=== PATIENT | female | born 1970 | race Caucasian/White ===

== ENCOUNTER 2016-11-25 09:25 | Outpatient (CLI) | payer OTHER ==
--- NOTE | 2016-11-25 15:04 | DIAGNOSTIC IMAGING REPORT ---
PROCEDURE: MG UNILATERAL DIAG-LT W/CAD INDICATION: LT BREAST MASS TECHNIQUE: Standard CC and MLO views of the left breast. Spot compression mammographic views of the left breast in the CC and MLO projection. A direct lateral left breast mammogram using CAD. The patient then went to ultrasound where alcaraz-scale and color Doppler sonographic imaging of the left breast was performed. COMPARISON: 05/19/2016, 05/16/2015, 03/15/2014 FINDINGS: Mammograms: Minimally dense fibrofatty tissue is present. In the area of the indicated palpable abnormality, (7o'clock position) no evidence of mass, architectural distortion, or clustered microcalcification. Ultrasound: In the area of palpable abnormality, there is a subtle change in the density of the adipose tissue but no encapsulated, discrete mass to suggest a focal lipoma. This area measures approximately 4.7 cm in length and about 2.5 cm in depth. No suspicious shadowing. No abnormal vascularity. IMPRESSION: 1. In the area indicated palpable abnormality, there is a slight increase in density in the adipose tissue without discrete encapsulation. No suspicious mass. 2. The patient can resume yearly screening mammography, April,. Findings and recommendations were discussed with the patient. RESULT CODE: 1- Negative. A. A negative report should not delay biopsy if a dominant or clinically suspicious mass is present. 10-15% of cancers are not identified by x-ray. B. A negative report may reinforce clinical impression. C. Adenosis and dense breasts may obscure an underlying neoplasm. D. False positive reports average 6-10%. E.. A yearly screening mammogram is recommended. A reminder letter will be scheduled.
== END 2016-11-25 23:00 | disposition home or self-care (01) ==
LOC: MAM SRH 09:25
DX: N63 Unspecified lump in breast (principal)